=== PATIENT | male | born 1980 | race Caucasian/White ===

== ENCOUNTER 2016-10-16 22:07 | Emergency (ER) | payer SELFPAY ==
[~2016-10-16] VITALS: Ht 188 cm; Wt 90.7 kg
--- NOTE | ~2016-10-16 | CT71 ---
[facility] A Service [facility] RADIOLOGY TEXT RESULTS PATIENT: NELLA KAPLAN LOCATION: SED : 80 UNIT #: [id number] AGE: [address]: CALE SHARMA SEX: M ORDER DR: [id number] [place] [id number] E MR#: [id number] Acc #: [id number] NAME: NELLA KAPLAN. : 1980 SEX: M STUDY DATE/TIME: 10/17/2016 0:57 UNIT: SED ROOM: STUDY DESCRIPTION: CT Head Wo Contrast Attending Physician: Cale Sharma Ordering Physician: Cale Sharma Primary Care Physician: Rema Primary Care Physician MEDICAL IMAGING REPORT This report is preliminary unless electronic signature is present. EXAM Noncontrast CT head, 10/17/2016. HISTORY 36-year-old male with migraine headache, chills for 4 days. COMPARISON None TECHNIQUE Axial noncontrast images were obtained from the skull base to the vertex. This CT exam was performed with one or more of the following radiation dose reduction techniques: automatic exposure control, adjustment of mA and/or kV according to patient size, and iterative reconstruction. FINDINGS Ventricular size and configuration are normal. There is no evidence of acute infarct or hemorrhage. There are no extraaxial fluid collections. No mass lesion or mass effect is seen. There are no skull fractures. IMPRESSION Normal noncontrast head CT. Dictated by... Jailene Bergman M.D. THIS IS AN ELECTRONICALLY VERIFIED REPORT Jailene Bergman M.D. at 10/17/2016 9:52 PM MARINA/aleksey TD: 10/17/2016 12:09 [facility] A Service [facility] RADIOLOGY TEXT RESULTS PATIENT: NELLA KAPLAN LOCATION: SED : [birth year] UNIT #: [id number] AGE: [address]: CALE SHARMA SEX: M ORDER DR: JENNIFER #: [id number] MEDICAL IMAGING REPORT Page 1 of 1
[~2016-10-16 22:07] MED LIST: LORTAB 10-3251 EACH; MOBIC PO; NO MEDICATIONS; PHENERGAN25 MG PO
[2016-10-17 01:28] LABS: URINE SOURCE CLEAN CATCH
[2016-10-17 01:31] LABS: URINE APPEARANCE CLEAR; URINE BILIRUBIN NEG (NEG); URINE BLOOD 1+ (NEG); URINE COLOR YELLOW; URINE GLUCOSE NEG (NORM); URINE KETONE NEG (NEG); URINE LEUKOCYTE ESTERASE NEG (NEG); URINE NITRATE NEG (NEG); URINE PH 6.5 (5-8); URINE PROTEIN NEG (NEG); URINE SPECIFIC GRAVITY <=1.005 (1.003-1.035)
[2016-10-17 01:31] LABS: BASOPHIL% 0.6 % (0-2.5); EOSINOPHIL# 0.2 X10e3 (0-0.7); EOSINOPHIL% 2.7 % (0.0-7.0); HEMATOCRIT 41.6 % (38.0-50.0); HEMOGLOBIN 14.5 gm/dL (13.0-16.0); LYMPHOCYTE# 1.3 X10e3 (1.0-3.5); LYMPHOCYTE% 15.2 % (17.0-45.0); MEAN CELL VOLUME 84.4 FL (83-96); MEAN CORPUSCULAR HEMOGLOBIN 29.4 PG (28-34); MEAN CORPUSCULAR HGB CONC 34.9 g/dL (30-36); MEAN PLATELET VOLUME 8.1 FL (6.5-11.5); MONOCYTE# 1.2 X10e3 (0-1.0); MONOCYTE% 14.2 % (3.0-12.0); NEUTROPHIL# 5.8 X10e3 (1.5-7.1); NEUTROPHIL% 67.3 % (40-75); PLATELET COUNT 197 X10e3 (140-420); RED BLOOD COUNT 4.93 X10e (3.90-5.60); RED CELL DISTRIBUTION WIDTH 12.8 % (11.0-15.5); WHITE BLOOD COUNT 8.5 X10e3 (4.0-10.5)
[2016-10-17 01:32] LABS: MICRO INDICATED? YES
[2016-10-17 01:32] LABS: DIFF IND NO
[2016-10-17 01:36] LABS: CULTURE INDICATED? NO; URINE BACTERIA NEG (NEG); URINE SQUAMOUS EPITHELIAL CELL FEW /[HPF]; URINE WBC 0-2 /[HPF] (0-5)
[2016-10-17 01:44] LABS: AMPHETAMINE POS (NEG); BARBITURATES NEG (NEG); BENZODIAZEPINES NEG (NEG); COCAINE NEG (NEG); MARIJUANA NEG (NEG); OPIATES NEG (NEG); TRICYCLIC ANTIDEPRESSANTS NEG (NEG); U METHADONE NEG (NEG)
[2016-10-17 01:50] LABS: ALBUMIN SERUM 3.4 g/dL (3.5-5.0); BILIRUBIN,TOTAL 0.4 mg/dL (0.2-2.0); BUN/CREATININE RATIO 6.36; CALCIUM SERUM 8.7 mg/dL (8.4-10.2); CREATININE SERUM 1.1 mg/dL (0.6-1.4); GLOM FILT RATE Estimated 85.9 mL/min (>60); POTASSIUM 3.9 mmol/L (3.5-5.1); PROTEIN TOTAL SERUM 7.2 g/dL (6.0-8.3)
== END 2016-10-17 02:38 | disposition home or self-care (01) ==
LOC: SED 22:07
PROVIDERS: Nurse Practitioner
DX: J01.90 Acute sinusitis, unspecified (principal); J45.909 Unspecified asthma, uncomplicated; F17.210 Nicotine dependence, cigarettes, uncomplicated; Z88.0 Allergy status to penicillin; Z88.1 Allergy status to other antibiotic agents; Z88.8 Allergy status to other drugs, medicaments and biological substances
CPT/HCPCS: 70450; 80053; 80307; 81003; 85025; 96372; 99284; J1885